=== PATIENT | male | born 2000 | race Caucasian/White ===

== ENCOUNTER 2024-06-12 17:24 | Emergency (ER) | payer OTHER ==
[~2024-06-12] VITALS: Ht 190.5 cm; Wt 92.4 kg
[~2024-06-12 17:24] MED LIST: AMOX875T; AMOX875T2 PO; IBUP200T46 PO; PRED20TA PO
[2024-06-13] MEDS: NEOSPORIN OINT 0.9 GM PKT TOP ONE (00:56)
[2024-06-13] MEDS: BOOSTRIX VACCINE (TETANUS/DIPHTH/ACEL. PERTUSSIS) 0.5ML SYR IM.IMMUN ONE (01:45)
[2024-06-13 01:47] VITALS: TEMP 98.7
[2024-06-13 01:48] VITALS: BP 118/78; O2SAT 99
[2024-06-13] MEDS: ANEXSIA, NORCO 7.5MG/325MG TABLET(HYDROCODONE/APAP) PO ONE (01:48)
[2024-06-13] MEDS: NORCO 5/325MG TABLET (HOME DOSE PACK) PO ONE (01:59)
== END 2024-06-13 02:00 | disposition home or self-care (01) ==
LOC: M ED 17:24
DX: S50.01XA Contusion of right elbow, initial encounter (principal); S61.306A Unspecified open wound of right little finger with damage to nail, initial encounter; V18.0XXA Pedal cycle driver injured in noncollision transport accident in nontraffic accident, initial encounter; Y92.410 Unspecified street and highway as the place of occurrence of the external cause; Y93.89 Activity, other specified; Y99.9 Unspecified external cause status; Z23 Encounter for immunization; Z79.2 Long term (current) use of antibiotics; Z79.52 Long term (current) use of systemic steroids; Z79.899 Other long term (current) drug therapy